=== PATIENT | female | born 1970 | race African-American/Black ===

== ENCOUNTER 2018-10-06 11:58 | Emergency (ER) | payer MEDICARE, MEDICAID ==
[2018-10-06 13:03] LABS: URINE APPEARANCE SL CLOUDY; URINE BILIRUBIN NEGATIVE (NEGATIVE); URINE BLOOD NEGATIVE (NEGATIVE); URINE COLOR YELLOW; URINE GLUCOSE (UA) NEGATIVE (NEGATIVE); URINE KETONE NEGATIVE (NEGATIVE); URINE LEUKOCYTE ESTERASE NEGATIVE (NEGATIVE); URINE NITRITE NEGATIVE (NEGATIVE); URINE PROTEIN NEGATIVE (NEGATIVE); URINE UROBILINOGEN 0.2 E.U./dL (0.20 - 1.00)
[2018-10-06] MEDS ORDERED: KETOROLAC 30 MG/ML VIAL IVP ONE (13:12)
[2018-10-06] MEDS ORDERED: DIAZEPAM (VALIUM) 5MG/ML **10ML VIAL IVP ONE (13:12)
[2018-10-06 14:12] LABS: BASO % 0.6 % (0-6); EOS % 1.4 % (0-6); GRAN % 46.4 % (47-80); HEMATOCRIT 40.6 % (35.0-47.0); HEMOGLOBIN 14.1 gm/dl (11.6-16.0); LYMPH % 43.9 % (16-45); MEAN CELL VOLUME 89.4 fl (81-97); MEAN CORPUSCULAR HEMOGLOBIN 31.1 pg (27-33); MEAN CORPUSCULAR HGB CONC 34.7 g/dl (32-36); MEAN PLATELET VOLUME 9.8 fl (7.4-10.4); MONO % 7.7 % (0-9); PLATELET COUNT 397 K/uL (130-400); RED BLOOD COUNT 4.54 M/uL (3.80-5.40); RED CELL DISTRIBUTION WIDTH 12.3 % (11.5-14.5); WHITE BLOOD COUNT W/O DIFF 6.3 K/uL (4.2-12.2)
[2018-10-06 14:31] LABS: BLOOD UREA NITROGEN 11 mg/dL (6-20); CREATININE 0.7 mg/dL (0.5-0.9); EST GLOMERULAR FILTRATION RATE > 60 mL/min
[2018-10-06 14:32] LABS: TOTAL PROTEIN 7.3 g/dL (6.6-8.7)
[2018-10-06 14:34] LABS: GLUCOSE,RANDOM 77 mg/dL (74-109)
[2018-10-06 14:36] LABS: ALB/GLOB RATIO 1.6 (1.1-1.8); ALBUMIN 4.5 g/dL (4.0-5.0); ALKALINE PHOSPHATASE 60 U/L (35-104); ALT/SGPT 20 U/L (<33); AST/SGOT 22 U/L (10.0-35.0); LIPASE 26 U/L (13-60)
--- NOTE | 2018-10-06 15:07 | Emergency Department Record ---
History of Present Illness - General Chief Complaint: Back Pain/Injury Stated Complaint: BACK PAIN/CENTER TO R SIDE/HIP Time Seen by Provider: 10/06/18 12:49 Source: Patient Mode of Arrival: Ambulatory Limitations: No limitations - History of Present Illness Initial Comments: pt has been having r flank pain that radiates down her r leg. she does not recall lifting or injury. she states the pain is burning. she denies problems w bowel or bladder. she denies numbness in her legs. she has had back problems before but nothing like this. she denies iv drug use Complaint: Back pain Onset/Timin -: Days(s) Similar Symptoms Previously: No Place: Home Severity: Moderate Quality: Aching, Burning Consistency: Constant Improves With: None Worsens With: Movement Context: Unknown Treatments Prior to Arrival: Prescription analgesics - Related Data Home Medications Medication Instructions Recorded Confirmed Last Taken Cyclobenzaprine HCl [Flexeril] 5 mg PO TID 10/06/18 10/06/18 1 Day Ago ~10/05/18 Hydroxyzine HCl 50 mg PO TID 10/06/18 10/06/18 1 Day Ago ~10/05/18 Ibuprofen 800 mg PO TID 10/06/18 10/06/18 1 Day Ago ~10/05/18 Propranolol HCl 20 mg PO BID 10/06/18 10/06/18 1 Day Ago ~10/05/18 Quetiapine Fumarate [Seroquel Xr] 400 mg PO DAILY 10/06/18 10/06/18 1 Day Ago ~10/05/18 Previous Rx's Medication Instructions Recorded Diazepam [Valium] 5 mg PO Q8H #7 tab 10/06/18 Hydrocodone/Acetaminophen [[place] 1 each PO Q8HR #7 tablet 10/06/18 5-325 Tablet] Ibuprofen [Motrin 600Mg] 600 mg PO Q6H #20 tablet 10/06/18 Allergies Allergy/AdvReac Type Severity Reaction Status Date / Time morphine Allergy RAPID Verified 10/06/18 12:38 HEART RATE Travel Screening - Travel/Exposure Within Last 30 Days Have you traveled within the last 30 days?: No - Travel/Exposure Within Last Year Have you traveled outside the [place] in the last year?: No - Additonal Travel Details Have you been exposed to anyone with a communicable illness?: No - Travel Symptoms Symptom Screening: None Review of Systems Reviewed: No additional complaints except as noted below Constitutional: Reports: As per HPI. Denies: Chills, Fever, Malaise, Night sweats, Weakness, Weight change Eyes: Reports: As per HPI. Denies: Eye discharge, Eye pain, Photophobia, Vision change ENT: Reports: As per HPI. Denies: Congestion, Dental pain, Ear pain, Epistaxis , Hearing loss, Throat pain Respiratory: Reports: As per HPI. Denies: Cough, Dyspnea, Hemoptysis, Stridor, Wheezes Cardiovascular: Reports: As per HPI. Denies: Arrhythmia, Chest pain, Dyspnea on exertion, Edema, Murmurs, Orthopnea, Palpitations, Paroxysmal nocturnal dyspnea, Rheumatic Fever, Syncope Endocrine: Reports: As per HPI. Denies: Fatigue, Heat or cold intolerance, Polydipsia, Polyuria Gastrointestinal: Reports: As per HPI. Denies: Abdominal pain, Constipation, Diarrhea, Hematemesis, Hematochezia, Melena, Nausea, Vomiting Genitourinary: Reports: As per HPI. Denies: Abnormal menses, Discharge, Dyspareunia, Dysuria, Frequency, Hematuria, Incontinence, Retention, Urgency Musculoskeletal: Reports: As per HPI. Denies: Arthralgia, Back pain, Gout, Joint swelling, Myalgia, Neck pain Skin: Reports: As per HPI. Denies: Bruising, Change in color, Change in hair/ nails, Lesions, Pruritus, Rash Neurological: Reports: As per HPI. Denies: Abnormal gait, Confusion, Headache, Numbness, Paresthesias, Seizure, Tingling, Tremors, Vertigo, Weakness Psychiatric: Reports: As per HPI. Denies: Anxiety, Auditory hallucinations, Depression, Homicidal thoughts, Suicidal thoughts, Visual hallucinations Hematological/Lymphatic: Reports: As per HPI. Denies: Anemia, Blood Clots, Easy bleeding, Easy bruising, Swollen glands Past Medical History - SOCIAL HISTORY Smoking Status: Current every day smoker Alcohol Use: None, Rare Drug Use: Rare, Occasional Drug Use Detail:: Marijuana - RESPIRATORY Hx Respiratory Disorders: No - CARDIOVASCULAR Hx Cardio Disorders: Yes Hx Hypertension: Yes Comment:: valve issues, stress test 1 year ago - NEURO Hx Neuro Disorders: No - GI Hx Reflux: Yes Hx Pancreatitis: Yes (r/t gull stones) - Comment:: utrine fibroids - ENDOCRINE Hx Endocrine Disorders: No Hx Diabetes: No Hx Thyroid Disease: No - MUSCULOSKELETAL Hx Musculoskeletal Disorders: Yes - PSYCH Hx Psych Problems: Yes Hx Anxiety: Yes Hx Depression: Yes Comment:: dysthmia - HEMATOLOGY/ONCOLOGY Hx Hematology/Oncology Disorders: No Family Medical History Any Significant Family History?: Yes Physical Exam - General General Appearance: Alert, Oriented x3, Cooperative, Mild distress - Head Head exam: Normal inspection - Eye Eye exam: Normal appearance, PERRL Pupils: Normal accommodation - ENT ENT exam: Normal exam, Mucous membranes moist, Normal external ear exam, Normal orophraynx Ear exam: Normal external inspection. negative: External canal tenderness Nasal Exam: Normal inspection. negative: Discharge, Sinus tenderness Mouth exam: Normal external inspection, Tongue normal Teeth exam: Normal inspection. negative: Dental caries Throat exam: Normal inspection. negative: Tonsillar erythema, Tonsillar exudate - Neck Neck exam: Normal inspection, Full ROM. negative: Tenderness - Respiratory Respiratory exam: Normal lung sounds bilaterally. negative: Respiratory distress - Cardiovascular Cardiovascular Exam: Regular rate, Normal rhythm, Normal heart sounds - GI/Abdominal GI/Abdominal exam: Soft, Normal bowel sounds. negative: Tenderness - Rectal Rectal exam: Deferred - exam: Deferred - Extremities Extremities exam: Normal inspection, Full ROM, Normal capillary refill. negative: Tenderness - Back Back exam: Reports: Muscle spasm, Paraspinal tenderness, Tenderness. Denies: Full ROM, Rash noted, Vertebral tenderness - Neurological Neurological exam: Alert, CN II-XII intact, Normal gait, Oriented X3 - Psychiatric Psychiatric exam: Normal affect, Normal mood - Skin Skin exam: Dry, Intact, Normal color, Warm Course Vital Signs 10/06/18 12:27 Temperature 98.2 F Pulse Rate 77 Respiratory 16 Rate Blood Pressure 153/98 Pulse Ox 98 - Reevaluation(s) Reevaluation #1: 10/06/18 15:[address] shows fibroids otherwise negative Medical Decision Making - Lab Data Result diagrams: 10/06/18 13:48 10/06/18 13:48 Lab Results 10/06/18 10/06/18 10/06/18 Range/Units 13:02 13:48 13:48 WBC 6.3 (4.2-12.2) K/uL RBC 4.54 (3.80-5.40) M/uL Hgb 14.1 (11.6-16.0) gm/dl Hct 40.6 (35.0-47.0) % MCV 89.4 (81-97) fl MCH 31.1 (27-33) pg MCHC 34.7 (32-36) g/dl RDW 12.3 (11.5-14.5) % Plt Count 397 (130-400) K/uL MPV 9.8 (7.4-10.4) fl Gran % 46.4 L (47-80) % Lymphocytes % 43.9 (16-45) % Monocytes % 7.7 (0-9) % Eosinophils % 1.4 (0-6) % Basophils % 0.6 (0-6) % Sodium 142 (136-145) mmol/L Potassium 4.1 (3.4-4.5) mmol/L Chloride 106 (98-107) mmol/L Carbon Dioxide 24.0 (22-29) mmol/L Anion Gap 12.0 (7-16) BUN 11 (6-20) mg/dL Creatinine 0.7 (0.5-0.9) mg/dL Estimated GFR > 60 mL/min Random Glucose 77 (74-109) mg/dL Calcium 9.2 (8.6-10.0) mg/dL Total Bilirubin 0.50 (0.2-1.0) mg/dL AST 22 (10.0-35.0) U/L ALT 20 (<33) U/L Alkaline Phosphatase 60 (35-104) U/L Total Protein 7.3 (6.6-8.7) g/dL Albumin 4.5 (4.0-5.0) g/dL Globulin 2.8 (1.4-4.8) gm/dL Albumin/Globulin Ratio 1.6 (1.1-1.8) Lipase 26 (13-60) U/L Urine Color Yellow Urine Appearance Sl cloudy Urine pH 7.5 (5.0-8.0) Ur Specific [place] 1.015 (1.002-1.030) Urine Protein Negative (NEGATIVE) Urine Glucose (UA) Negative (NEGATIVE) Urine Ketones Negative (NEGATIVE) Urine Blood Negative (NEGATIVE) Urine Nitrite Negative (NEGATIVE) Urine Bilirubin Negative (NEGATIVE) Urine Urobilinogen 0.2 (0.20 - 1.00) E.U./dL Ur Leukocyte Esterase Negative (NEGATIVE) Disposition Disposition: Discharge Clinical Impression: Fibroid tumor Sciatica Qualifiers: Laterality: right Qualified Code(s): M54.31 - Sciatica, right side Disposition: Home, Self-Care Condition: (1) Good Instructions: Sciatica (ED), Uterine Fibroids (ED) Additional Instructions: follow up with family doctor and with welding supervisor. return sooner if worse. no lifting more then 10 lbs for 10 days Prescriptions: Hydrocodone/Acetaminophen [[place] 5-325 Tablet] 1 each PO Q8HR #7 tablet Diazepam [Valium] 5 mg PO Q8H #7 tab Ibuprofen [Motrin 600Mg] 600 mg PO Q6H #20 tablet Quality - Quality Measures Quality Measures: N/A - Blood Pressure Screening Does Patient Have Any of the Following: No Blood Pressure Classification: Hypertensive Reading Systolic Measurement: 153 Diastolic Measurement: 98 Screening for High Blood Pressure: < First Hypertensive BP, F/U Documented > [ [id number]] First Hypertensive Follow-up Interventions: Follow-up with rescreen GT 1 day and LT 4 weeks.
--- NOTE | 2018-10-06 23:08 | CT SCAN REPORT ---
EXAM: CT SCAN ABDOMEN/PELVIS WO CONTRAST HISTORY: RIGHT BACK/FLANK PAIN FOR ONE WEEK. PREVIOUS CHOLECYSTECTOMY. TECHNIQUE: Routine noncontrast CT images of the abdomen and pelvis were obtained. COMPARISON: None. FINDINGS: Visualized lung bases are unremarkable. Gallbladder is surgically absent. Liver, pancreas, spleen, adrenals, and kidneys are unremarkable. There is no clear renal or ureteral calculi or hydronephrosis. Please note, portions of the ureters are obscured by overlapping structures. The bowel is normal in caliber. Visualized portions of the appendix appear unremarkable. Bladder is unremarkable. Uterus is enlarged and lobulated compatible with leiomyomatous changes. Suspect a calcified fibroid along the superior aspect of the fundus. Aorta is normal in caliber. No free air or significant free fluid. Abdominal wall soft tissues demonstrate some diastasis recti. There is an enlarged lobulated appearance to the uterus, likely reflecting leiomyomatous changes including multiple subserosal fibroids. IMPRESSION: THERE IS AN ENLARGED LOBULATED APPEARANCE TO THE UTERUS, LIKELY REFLECTING LEIOMYOMATOUS CHANGES INCLUDING MULTIPLE SUBSEROSAL FIBROIDS. RECOMMEND PELVIC ULTRASOUND FOR FURTHER ASSESSMENT. JOB NUMBER: [id number] [facility]
== END 2018-10-06 15:29 | disposition home or self-care (01) ==
LOC: ER 11:58
DX: M54.31 Sciatica, right side (principal); D25.2 Subserosal leiomyoma of uterus; I10 Essential (primary) hypertension; F17.210 Nicotine dependence, cigarettes, uncomplicated
CPT/HCPCS: 99284 ×2; 96374; 96375; 83690; 85025; 80053; 81003; 74176; J1885; J3360